=== PATIENT | female | born 1965 | race Caucasian/White ===

== ENCOUNTER 2017-12-22 12:05 | Inpatient (IN) | payer OTHER ==
[~2017-12-22] VITALS: Ht 170.2 cm; Wt 54.0 kg
--- NOTE | ~2017-12-22 | CNG ---
[facility] [place] [address] CYTO-NONGYN REPORT PROCEDURE Name: YUKOFLORACHAMP Room #: 408-P ADM IN M.R.#: [id number] Admission: 12/22/17 Date of : 63 Discharge: Report #: [id number] Path Case #: [id number] CYTOPATHOLOGY REPORT COLLECTION DATE: 12/25/2017 RECEIVED DATE: 12/25/2017 SUBMITTING PHYS: Dr. Dar Lee OTHER PHYS: Dr. Andre Grant M.D. CLINICAL HISTORY: Gastric adenocarcinoma SPECIMEN(S) RECEIVED: A.Pleural fluid, Right * * * * * * * * * * * * FINAL DIAGNOSIS: A. Pleural fluid, Right: POSITIVE FOR MALIGNANCY. 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 COMMENT: The patient has a history of poorly differentiate adenocarcinoma of the stomach ([id number]). The current case is co-reviewed with Dr. Tori Contreras. Clinical and radiographic correlation is required. PATHOLOGIST: Sherri Sanders M.D. REPORT ELECTRONICALLY SIGNED BY: Sherri Sanders M.D. DATE/TIME: 12/26/2017 14:42 * * * * * * * * * * * * GROSS PATHOLOGY: A. Pleural fluid, Right: The specimen is submitted unfixed, labeled "Champ Huntley". Received by the Cytology Department is 30 mL of cloudy yellow fluid. One ThinPrep slide and a formalin fixed cell block were prepared. (lg12.25.2017) YARN SPINNER(S): PREETHI Morales(ASCP) INITIAL CPT CODE(S): A; 11564, 55673 Professional services performed by [facility] at [facility] [address] , [place] [address] Technical services performed by [facility] at [address] [place] [address], [address], [place] [address]. [facility] [address] [place] [address] CYTO-NONGYN REPORT PROCEDURE Name: CHAMP HUNTLEY Room #: 408-P ADM IN M.R.#: [id number] Admission: 12/22/17 Date of : 63 Discharge: Report #: [id number] Path Case #: [id number] [facility] [address] [place] [address], [address] [place] [address] PHONE: [phone] DIRECTOR: Arnulfo Adame M.D. * * * END OF REPORT * * *
[2017-12-22 13:13] VITALS: BP 96/61
[2017-12-23 04:00] VITALS: BP 91/54
[2017-12-23 04:14] LABS: ABSOLUTE NEUTROPHILS 7.1 thou/uL (1.4-8.2); BASOPHILS 0.1 % (0.0-2.0); HEMATOCRIT 27.4 % (37.0-47.0); HEMOGLOBIN 9.3 gm/dL (12.0-15.0); LYMPHOCYTES 4.3 % (24.0-44.0); MCH 29.9 pg (26.0-34.0); MCHC 33.9 g/dL (28.0-37.0); MCV 88.2 fL (80.0-100.0); MONOCYTES 4.7 % (1.0-8.0); PLATELET COUNT 268 thou/uL (150-400); POLYS 90.9 % (36.0-66.0); RBC 3.11 mil/uL (4.20-5.00); RDW 14.2 % (10.5-14.5); WBC 7.9 thou/uL (4.0-11.0)
[2017-12-23 04:29] LABS: ALBUMIN 1.8 g/dL (3.4-5.0); CREATININE 0.6 mg/dL (0.6-1.0); POTASSIUM 4.4 mmol/L (3.5-5.1); TOTAL PROTEIN 5.1 g/dL (6.4-8.2)
[2017-12-23 08:00] VITALS: BP 98/58
[2017-12-23 12:00] VITALS: BP 99/62
[2017-12-23 17:01] VITALS: BP 115/59
[2017-12-23 21:40] VITALS: BP 106/55
[2017-12-24 03:13] VITALS: BP 101/52
[2017-12-24 17:23] VITALS: BP 104/65
[2017-12-24 20:00] VITALS: BP 99/60
[2017-12-25 04:00] VITALS: BP 111/61
[2017-12-25 06:20] LABS: HEMATOCRIT 23.3 % (37.0-47.0); HEMOGLOBIN 7.9 gm/dL (12.0-15.0); MCH 29.4 pg (26.0-34.0); MCHC 33.7 g/dL (28.0-37.0); MCV 87.2 fL (80.0-100.0); RBC 2.67 mil/uL (4.20-5.00); RDW 15.3 % (10.5-14.5); WBC 9.8 thou/uL (4.0-11.0)
[2017-12-25 06:27] LABS: CREATININE 0.6 mg/dL (0.6-1.0)
[2017-12-25 06:31] LABS: APTT 25.4 Seconds (24.5-32.8); INR 1.1; PROTIME 10.9 Seconds (9.3-11.4)
[2017-12-25 06:33] LABS: ALBUMIN 1.8 g/dL (3.4-5.0); TOTAL BILIRUBIN 1.4 mg/dL (<0.1-1.0); TOTAL PROTEIN 5.5 g/dL (6.4-8.2)
[2017-12-25 08:35] VITALS: BP 111/76
[2017-12-25 13:35] LABS: CLARITY CLOUDY; COLOR YELLOW; SOURCE RIGHT CHEST; TOTAL VOLUME 55 mL
[2017-12-25 13:42] LABS: SOURCE RIGHT CHEST
[2017-12-25 13:53] LABS: BF NUCLEATED CELLS 822; BF RBC 1972
[2017-12-25 15:22] LABS: BF MACROPHAGE 29; BF NEUTROPHILS 50
[2017-12-25 16:06] VITALS: BP 111/76
[2017-12-25 21:29] VITALS: BP 112/67
[2017-12-26 03:23] VITALS: BP 122/82
[2017-12-26 16:11] LABS: BODY FLUID ALBUMIN 1.9 g/dL (()); BODY FLUID AMYLASE 44 U/L (()); BODY FLUID GLUCOSE 103 mg/dL (()); BODY FLUID LDH 226 IU/L (())
== END 2017-12-26 15:40 | disposition short-term general hospital (02) | DRG 374 ==
LOC: SPEC 12:05 → 4N 19:25 → SPEC 19:26 → 4N 19:27
PROVIDERS: Internal Medicine; Radiology Diagnostic Radiology
DX: C16.9 Malignant neoplasm of stomach, unspecified (principal); E43 Unspecified severe protein-calorie malnutrition; J90 Pleural effusion, not elsewhere classified; R18.8 Other ascites; E46 Unspecified protein-calorie malnutrition; Z68.1 Body mass index [BMI] 19.9 or less, adult; K59.00 Constipation, unspecified; R09.02 Hypoxemia; D64.9 Anemia, unspecified; Z79.899 Other long term (current) drug therapy
CPT/HCPCS: 10790